=== PATIENT | male | born 1960 | race Caucasian/White ===

== ENCOUNTER → 2018-12-30 | Outpatient (CLI) | payer OTHER ==
[~2018-12-30] MED LIST: CIPRO500 MG PO
--- NOTE | 2018-12-30 12:21 | Diagnostic Imaging Report ---
Exam: Testicular ultrasound with Doppler Clinical History: Chronic testicular pain. Findings: Both testes are normal in echogenicity and size without intratesticular mass. There are bilateral hydroceles. No evidence of varicocele. There is a 2.8 x 3.2 x 3.3 cm left epididymal cyst which is predominately anechoic with mild internal echoes. Both epididymides are otherwise normal in appearance. Normal Doppler flow to the bilateral testicles and epididymides. The right testes measures 4.9 x 2.5 x 3.6 cm and the left testes measures 4.9 x 2.9 x 4.1 cm. The right epididymis measures 1.0 x 0.7 x 1.1 cm and the left epididymis measures 2.8 x 3.6 x 4.3 cm. Impression: No sonographic evidence of testicular torsion. Bilateral hydroceles. Left epididymal cyst measuring up to 3.3 cm. Signed by: Dr. Abby Herman MD on 12/30/2018 12:18 PM
== END ==
LOC: US 11:25
PROVIDERS: ATTEND Urology
DX: G89.29 Other chronic pain (principal)
CPT/HCPCS: 76870; 93976